=== PATIENT | male | born 1975 | race American Indian/Alaskan Native ===

== ENCOUNTER 2019-01-05 02:09 | Emergency (ER) | payer OTHER ==
[2019-01-05 02:19] VITALS: BP 159/99; TEMP 98.5; BMI 32.5
[2019-01-05] MEDS ORDERED: KETOROLAC TROMETHAMINE 30 MG/1 ML VIAL IM ONE (02:25)
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
[2019-01-05] MEDS ORDERED: KETOROLAC TROMETHAMINE 30 MG/1 ML VIAL ONE (02:28)
[2019-01-05] MEDS ORDERED: ACETAMINOPHEN 500 MG TABLET (FP) PO ONE (03:51)
[2019-01-05] MEDS ORDERED: ACETAMINOPHEN 500 MG TABLET (FP) ONE (03:58)
[2019-01-05 04:34] VITALS: PULSE 115
== END 2019-01-05 04:38 | disposition home or self-care (01) ==
LOC: FER 02:09
PROC: 3E0233Z Introduction of Anti-inflammatory into Muscle, Percutaneous Approach (ICD-10-PCS; principal; 2019-01-05)
DX: M79.10 Myalgia, unspecified site (principal); V43.62XA Car passenger injured in collision with other type car in traffic accident, initial encounter; Y93.89 Activity, other specified; Y92.410 Unspecified street and highway as the place of occurrence of the external cause; M54.5 Low back pain; M25.532 Pain in left wrist; M25.512 Pain in left shoulder
CPT/HCPCS: 72100-TC-FY; 73030-TC-LT-FY; 73070-TC-LT-FY; 73110-TC-LT-FY; 73523-TC-FY; 99282-25

== ENCOUNTER 2021-12-05 05:59 | Emergency (ER) | payer OTHER ==
[2021-12-05 06:08] VITALS: BP 152/104; PULSE 114; TEMP 99.4; BMI 35.4
[2021-12-05] MEDS ORDERED: ALBUTEROL SO4 2.5/IPRATROPIUM 0.5 INH SOL 3 ML VIAL.NEB. NEB ONE (06:15)
[2021-12-05] MEDS: ALBUTEROL SO4 2.5/IPRATROPIUM 0.5 INH SOL 3 ML VIAL.NEB. NEB SCH ×3 (06:18→06:43)
== END 2021-12-05 06:58 | disposition home or self-care (01) ==
LOC: FER 05:59
PROC: 3E0F7GC Introduction of Other Therapeutic Substance into Respiratory Tract, Via Natural or Artificial Opening (ICD-10-PCS; principal; 2021-12-05)
DX: J45.909 Unspecified asthma, uncomplicated (principal)
CPT/HCPCS: 99283-25

== ENCOUNTER 2021-12-05 17:04 | Emergency (ER) | payer OTHER ==
[2021-12-05] MEDS ORDERED: ACETAMINOPHEN 500 MG TABLET (FP) PO ONE (17:35)
[2021-12-05] MEDS ORDERED: IBUPROFEN 600 MG TABLET (FP) PO ONE ×2 (17:36→17:52)
[2021-12-05] MEDS ORDERED: ACETAMINOPHEN 500 MG TABLET (FP) ONE (17:52)
[2021-12-05 18:02] VITALS: BP 142/105; PULSE 110; TEMP 100.3; BMI 34.9
== END 2021-12-05 18:12 | disposition home or self-care (01) ==
LOC: FER 17:04
DX: R05.1 Acute cough (principal)
CPT/HCPCS: 0241U-QW; 99283-25

== ENCOUNTER 2022-09-11 10:48 | Emergency (ER) | payer OTHER ==
[2022-09-11 10:58] VITALS: BMI 33.5
[2022-09-11] MEDS ORDERED: DEXAMETHASONE SOD PHOSPHATE 10 MG/1 ML VIAL IM ONE (11:08)
[2022-09-11] MEDS ORDERED: ALBUTEROL SO4 2.5/IPRATROPIUM 0.5 INH SOL 3 ML VIAL.NEB. NEB ONE ×2 (11:08→11:09)
[2022-09-11] MEDS ORDERED: KETOROLAC TROMETHAMINE 30 MG/1 ML VIAL IM ONE (11:08)
[2022-09-11] MEDS ORDERED: DEXAMETHASONE SOD PHOSPHATE/PF 10 MG/ML SDV ONE (11:09)
[2022-09-11] MEDS ORDERED: KETOROLAC TROMETHAMINE 30 MG/1 ML VIAL ONE (11:10)
[2022-09-11 12:24] LABS: THROAT:GRP A STREP NOT DETECTED (NOTDETECTED)
[2022-09-11 12:32] VITALS: BP 138/93; TEMP 98.2
[2022-09-11 13:06] VITALS: PULSE 108; RESP 18
== END 2022-09-11 13:00 | disposition home or self-care (01) ==
LOC: FER 10:48
PROC: 3E023GC Introduction of Other Therapeutic Substance into Muscle, Percutaneous Approach (ICD-10-PCS; principal; 2022-09-11)
PROC: 3E0F7GC Introduction of Other Therapeutic Substance into Respiratory Tract, Via Natural or Artificial Opening (ICD-10-PCS; 2022-09-11)
DX: J06.9 Acute upper respiratory infection, unspecified (principal)
CPT/HCPCS: 0241U-QW; 87651; 94640; 96372; 99284-25; J1100

== ENCOUNTER 2022-12-19 17:17 | Emergency (ER) | payer OTHER ==
[2022-12-19] MEDS ORDERED: ACETAMINOPHEN 1000 MG/100 ML BAG IVPB ONE (17:38)
[2022-12-19] MEDS ORDERED: SODIUM CHLORIDE 0.9% 1000 ML INFUS.BAG IV ONE (17:38)
[2022-12-19] MEDS ORDERED: KETOROLAC TROMETHAMINE 30 MG/1 ML VIAL IVPUSH ONE (18:03)
[2022-12-19] MEDS ORDERED: ALBUTEROL SO4 2.5/IPRATROPIUM 0.5 INH SOL 3 ML VIAL.NEB. NEB ONE ×2 (18:06→18:08)
[2022-12-19] MEDS ORDERED: KETOROLAC TROMETHAMINE 30 MG/1 ML VIAL ONE (18:06)
[2022-12-19] MEDS ORDERED: ACETAMINOPHEN INJECTION 100 ML IVPB ONE (18:06)
[2022-12-19 18:42] LABS: INR 1.05 (0.83-1.09); PROTHROMBIN TIME (PATIENT) 12.2 SEC (9.7-13.0)
[2022-12-19 18:47] LABS: HEMATOCRIT 48.6 % (35.4-49); HEMOGLOBIN 16.4 G/dL (11.7-16.9); MCH 30.5 pg (25.7-33.7); MCHC 33.8 g/dl (32.0-35.9); MEAN CELL VOLUME 90.4 fl (80-96); MEAN PLT VOLUME 8.6 fl (7.5-11.1); PLATELET COUNT 230.5 10^3/uL (134-434); RBC 5.38 10^6/uL (4.00-5.60); RDW 13.9 % (11.9-15.9); WHITE BLOOD COUNT 9.1 10^3/uL (4.0-10.8)
[2022-12-19 18:49] LABS: ALBUMIN 4.5 g/dl (3.4-5.0); BILIRUBIN,TOTAL 0.6 mg/dl (0.2-1); CALCIUM 9.2 mg/dl (8.5-10); POTASSIUM 3.8 mmol/L (3.5-5.1); TOT PROT 7.8 g/dl (6.4-8.2)
[2022-12-19 18:53] VITALS: BP 128/77; PULSE 77; RESP 20; TEMP 98.2; BMI 36.6
[2022-12-19 19:23] LABS: PLATELET ESTIMATE ADEQUATE
[2022-12-19] MEDS ORDERED: METHOCARBAMOL 500 MG TABLET ONE (22:19)
[2022-12-19] MEDS ORDERED: METHOCARBAMOL 500 MG TABLET PO ONE (22:20)
[2022-12-19] MEDS ORDERED: guaiFENesin/CODEINE 10 ML UNIT-DOSE CUPS PO ONE (22:35)
[2022-12-19] MEDS ORDERED: guaiFENesin/CODEINE 10 ML UNIT-DOSE CUPS ONE (22:36)
== END 2022-12-19 22:37 | disposition home or self-care (01) ==
LOC: FER 17:17
PROC: 3E033NZ Introduction of Analgesics, Hypnotics, Sedatives into Peripheral Vein, Percutaneous Approach (ICD-10-PCS; principal; 2022-12-19)
PROC: 3E0333Z Introduction of Anti-inflammatory into Peripheral Vein, Percutaneous Approach (ICD-10-PCS; 2022-12-19)
PROC: 3E0F7GC Introduction of Other Therapeutic Substance into Respiratory Tract, Via Natural or Artificial Opening (ICD-10-PCS; 2022-12-19)
DX: R10.11 Right upper quadrant pain (principal); R05.9 Cough, unspecified; J40 Bronchitis, not specified as acute or chronic; S29.011A Strain of muscle and tendon of front wall of thorax, initial encounter; X58.XXXA Exposure to other specified factors, initial encounter
CPT/HCPCS: 36415; 71045-TC-FY; 71101-TC-RT-FY; 74176-TC; 80053; 81003; 81015; 83690; 85027; 85610; 85730; 86850; 86900; 86901; 87086; 99285-25

== ENCOUNTER 2022-12-26 23:10 | Emergency (ER) | payer OTHER ==
[2022-12-26 23:18] VITALS: RESP 18; TEMP 97.8; BMI 36.8
[2022-12-27 01:11] LABS: BASO % 0.6 % (0-2.0); EOS % 1.7 % (0-4.5); HEMATOCRIT 42.6 % (35.4-49); HEMOGLOBIN 14.7 GM/dL (11.7-16.9); LYMPH % 30.6 % (8-40); MCH 30.5 pg (25.7-33.7); MCHC 34.6 g/dl (32.0-35.9); MEAN CELL VOLUME 88.1 fl (80-96); MEAN PLT VOLUME 7.9 fl (7.5-11.1); MONO % 7.3 % (3.8-10.2); NEUT % 59.8 % (42.8-82.8); PLATELET COUNT 358 10^3/uL (134-434); RBC 4.83 M/mm3 (4.00-5.60); RDW 13.5 % (11.9-15.9); WHITE BLOOD COUNT 9.8 K/mm3 (4.0-10.0)
[2022-12-27 01:15] LABS: PH,URINE 5.5 (5.0-8.0); URINE APPEARANCE CLEAR; URINE BILIRUBIN NEGATIVE (NEGATIVE); URINE COLOR YELLOW; URINE GLUCOSE (UA) NEGATIVE (NEGATIVE); URINE KETONE TRACE (NEGATIVE); URINE LEUK ESTERASE NEGATIVE (NEGATIVE); URINE NITRITE NEGATIVE (NEGATIVE); URINE PROTEIN NEGATIVE (NEGATIVE)
[2022-12-27 01:19] LABS: PROTHROMBIN TIME (PATIENT) 11.6 SEC (9.7-13.0)
[2022-12-27 01:21] LABS: ACTIVATED PTT 34.4 SECONDS (25.2-36.5)
[2022-12-27 01:31] LABS: POTASSIUM 4.1 mmol/L (3.5-5.1)
[2022-12-27 01:33] LABS: CALCIUM 8.9 mg/dL (8.5-10.1)
[2022-12-27 01:34] LABS: ALBUMIN 3.5 g/dl (3.4-5.0)
[2022-12-27 01:38] LABS: BILIRUBIN,TOTAL 0.6 mg/dL (0.2-1)
[2022-12-27 02:06] LABS: BLOOD UREA NITROGEN 19.4 mg/dL (7-18); TOT PROT 7.1 g/dl (6.4-8.2)
[2022-12-27 04:55] VITALS: BP 174/103; PULSE 99
== END 2022-12-27 04:58 | disposition left against medical advice (07) ==
LOC: FER 23:10
DX: R10.31 Right lower quadrant pain (principal); R10.11 Right upper quadrant pain; S30.1XXA Contusion of abdominal wall, initial encounter; X58.XXXA Exposure to other specified factors, initial encounter
CPT/HCPCS: 36415; 74177-TC; 80053; 81003; 83690; 85025; 85610; 85730; 87086; 99285-25; Q9967

== ENCOUNTER 2023-10-01 18:38 | Emergency (ER) | payer OTHER ==
[2023-10-01] MEDS: ALBUTEROL SO4 2.5/IPRATROPIUM 0.5 INH SOL 3 ML VIAL.NEB. NEB SCH (18:44)
[2023-10-01 18:55] VITALS: RESP 20; TEMP 99; BMI 37.2
[2023-10-01] MEDS ORDERED: DEXAMETHASONE 4 MG TABLET (FP) ONE (19:50)
[2023-10-01] MEDS: DEXAMETHASONE 4 MG TABLET (FP) PO ONE (19:51)
[2023-10-01 21:04] LABS: HEMATOCRIT 46.4 % (35.4-49); HEMOGLOBIN 15.4 G/dL (11.7-16.9); MCHC 33.1 g/dl (32.0-35.9); MEAN CELL VOLUME 90.6 fl (80-96); PLATELET COUNT 245.4 10^3/uL (134-434); RBC 5.12 10^6/uL (4.00-5.60); WHITE BLOOD COUNT 10.2 10^3/uL (4.0-10.8)
[2023-10-01] MEDS ORDERED: MAGNESIUM SULFATE IN WATER 2 GM/50 ML IVPB IVPB ONE (21:11)
[2023-10-01 21:12] LABS: ALBUMIN 4.7 g/dl (3.4-5.0); BILIRUBIN,TOTAL 0.5 mg/dl (0.2-1); CALCIUM 9.2 mg/dl (8.5-10.1); POTASSIUM 3.4 mmol/L (3.5-5.1); TOT PROT 7.2 g/dl (6.4-8.2)
[2023-10-01] MEDS: MAGNESIUM SULF 50% (8.12 MEQ/2 ML-1 GM VIAL) IVPB ONE (21:18)
[2023-10-01 21:22] LABS: PLATELET ESTIMATE ADEQUATE
[2023-10-01] MEDS ORDERED: MAG HYDROX/AL HYDROX/SIMETH 30 ML UNIT-DOSE CUP ONE (21:48)
[2023-10-01] MEDS ORDERED: POTASSIUM CHLORIDE TABS 20 MEQ TABLET.ER (FP) PO ONE (21:48)
[2023-10-01] MEDS ORDERED: ASPIRIN 325 MG TABLET ONE (21:48)
[2023-10-01] MEDS: POTASSIUM CHLORIDE TABS 20 MEQ TABLET.ER (FP) PO ONE (21:53)
[2023-10-01] MEDS: MAG HYDROX/AL HYDROX/SIMETH 30 ML UNIT-DOSE CUP PO ONE (21:53)
[2023-10-01] MEDS: ASPIRIN 81 MG CHEWABLE TABLETS PO ONE (21:53)
[2023-10-01 22:22] VITALS: BP 159/98; PULSE 118
== END 2023-10-01 23:15 | disposition home or self-care (01) ==
LOC: FER 18:38
PROC: 3E033NZ Introduction of Analgesics, Hypnotics, Sedatives into Peripheral Vein, Percutaneous Approach (ICD-10-PCS; principal; 2023-10-01)
PROC: 3E0F7GC Introduction of Other Therapeutic Substance into Respiratory Tract, Via Natural or Artificial Opening (ICD-10-PCS; 2023-10-01)
DX: R06.02 Shortness of breath (principal); J45.41 Moderate persistent asthma with (acute) exacerbation; R07.9 Chest pain, unspecified
CPT/HCPCS: 36415; 71046-TC-FY; 80053; 83880; 84484; 85025; 93005; 99285-25